=== PATIENT | male | born 1960 | race African-American/Black ===

== ENCOUNTER → 2016-08-08 | Outpatient (CLI) | payer MEDICARE, MEDICAID | LOC: RAD 07:21 | PROVIDERS: ATTEND Physician Assistant | DX: R94.5 Abnormal results of liver function studies (principal) | CPT/HCPCS: 76700; 93976 ==

== ENCOUNTER → 2017-06-19 | Outpatient (CLI) | payer MEDICAID, MEDICARE ==
--- NOTE | 2017-06-19 10:47 | RADIOLOGY REPORT (SQ) ---
EXAM DESCRIPTION: U/S ABDOMEN LIMITED W/O DOP COMPLETED DATE/TIME: 06/19/2017 9:34 am REASON FOR STUDY: R94.5 ABNORMAL RESULTS OF LIVER FUNCTION STUDIES R94.5 ABNORMAL RESULTS OF LIVER FUNCTION STUDIES COMPARISON: 2016. TECHNIQUE: Dynamic and static grayscale images acquired of the abdomen and recorded on PACS. Additio nal selected color Doppler and spectral images recorded. LIMITATIONS: None. FINDINGS: PANCREAS: No masses. No peripancreatic edema or fluid collections. LIVER: Echotexture is coarse with increased echogenicity consistent with fatty infiltration. 16.8 cm . LIVER VASCULATURE: Normal directional flow of the main portal vein and hepatic veins. GALLBLADDER: No stones. Normal wall thickness. No pericholecystic fluid. ULTRASOUND-DETECTED MALHOTRA'S SIGN: Negative. INTRAHEPATIC DUCTS AND COMMON DUCT: CBD and intrahepatic ducts normal caliber. No filling defects. INFERIOR VENA CAVA: Normal flow. AORTA: No aneurysm. RIGHT KIDNEY: Normal size. Normal echogenicity. No solid or suspicious masses. No hydronephrosis. No calcifications. PERITONEAL AND RIGHT PLEURAL SPACE: No ascites or effusions. OTHER: No other significant finding. IMPRESSION: FATTY INFILTRATION OF THE LIVER. OTHERWISE NORMAL RIGHT UPPER QUADRANT ULTRASOUND. TECHNICAL DOCUMENTATION: JOB ID: [id number] [employer]- All Rights Reserved Reading location - IP/workstation name: [email or web address]
== END ==
LOC: RAD 10:08
PROVIDERS: ATTEND Family Medicine
DX: R94.5 Abnormal results of liver function studies (principal); K76.0 Fatty (change of) liver, not elsewhere classified
CPT/HCPCS: 76705

== ENCOUNTER 2017-11-24 08:06 | Emergency (ER) | payer MEDICARE, MEDICAID ==
[2017-11-24] MEDS ORDERED: MORPHINE SULFATE 10 MG/ML INJ IM ONE (08:22)
[2017-11-24] MEDS ORDERED: SILVER SULFADIAZINE 1% CREAM 50 GM TP ONE (08:23)
[2017-11-24] MEDS ORDERED: ONDANSETRON 4 MG TAB.RAPDIS PO ONE (08:23)
--- NOTE | 2017-11-24 08:30 | ER Document Report ---
ED Burn/Smoke/Toxic Fumes - General Mode of Arrival: Ambulatory Information source: Patient TRAVEL OUTSIDE OF THE [place] IN LAST 30 DAYS: No - General Chief Complaint: Thermal Burn Stated Complaint: LEFT ARM INJURY Time Seen by Provider: 11/24/17 08:17 Notes: Patient is a 56 year old male with a history of alcoholic pancreatitis presents to the emergency department complaining of a burn to the left forearm. Patient states he was moving a hot grill around 1200 this morning when he got burned. He states he was consuming alcohol and stopped around the time he got burned. (SPENSER FRANKLIN) - Related Data Allergies/Adverse Reactions: quinine sulfate [From Qualaquin] Allergy (Verified 11/24/17 08:07) Delirium qualude Allergy (Uncoded 11/24/17 08:07) Past Medical History - General Information source: Patient - Social History Smoking Status: Current Every Day Smoker Cigarette use (# per day): No - states he only smokes black and mild cigars as of 11/24/2017 Frequency of alcohol use: Heavy Family History: Reviewed & Not Pertinent - Past Medical History Cardiac Medical History: Reports: Hx Hypertension GI Medical History: Reports: Hx Gastroesophageal Reflux Disease, Hx Pancreatitis Musculoskeletal Medical History: Reports Hx Arthritis - 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 Traumatic Medical History: Reports: Hx Traumatic Brain Injury Past Surgical History: Reports: Hx Orthopedic Surgery - left knee surgery, Hx Tonsillectomy - Immunizations Hx Diphtheria, Pertussis, Tetanus Vaccination: Yes - given today Hx Pneumococcal Vaccination: 06/17/13 Review of Systems - Review of Systems Constitutional: No symptoms reported EENT: No symptoms reported Cardiovascular: No symptoms reported Respiratory: No symptoms reported Gastrointestinal: No symptoms reported Genitourinary: No symptoms reported Male Genitourinary: No symptoms reported Musculoskeletal: See HPI Skin: No symptoms reported Hematologic/Lymphatic: No symptoms reported Neurological/Psychological: No symptoms reported -: Yes All other systems reviewed and negative Physical Exam - Notes Notes: GENERAL: Alert, appears uncomfortable, odor of ETOH. No acute distress. HEAD: Normocephalic, atraumatic. EYES: Pupils equal, round, and reactive to light. Extraocular movements intact. ENT: Oral mucosa moist, tongue midline. NECK: Full range of motion. Supple. Trachea midline. LUNGS: Clear to auscultation bilaterally, no wheezes, rales, or rhonchi. No respiratory distress. HEART: Regular rate and rhythm. No murmurs, gallops, or rubs. EXTREMITIES: Moves all 4 extremities spontaneously. NEUROLOGICAL: Alert and oriented x3. Normal speech. PSYCH: Normal affect, normal mood. SKIN: Warm, dry, normal turgor. Elliptical shaped burn approximately 21uro9bn on dorsal aspect of left forearm. Just distal to this on the dorsal aspect of proximal ulnar contains 1-2mm avilez. (SPENSER FRANKLIN) Discharge - Discharge Clinical Impression: Burn of forearm, left, second degree Qualifiers: Encounter type: initial encounter Qualified Code(s): T22.212A - Burn of second degree of left forearm, initial encounter Condition: Stable Disposition: HOME, SELF-CARE Additional Instructions: Avilez The seriousness of a burn is not always obvious at first. Delayed tissue damage and secondary infection may occur despite proper treatment. Proper care is very important. A burn that is third-degree may need skin grafting. Most avilez, however, are simply protected with dressings until healed. Keep the burn clean. If the dressing gets wet, remove it and blot the wound dry, then apply a fresh dressing. Dressings should be changed at least once daily. Soaks to remove crusting are usually started in about two days. Avilez in certain areas require stretching to prevent disabling tightness. Your doctor will advise you about this. For pain control, you may frequently apply a hand towel that has been dipped in water with ice cubes. Do not apply ice directly to the burned areas. If any signs of infection occur (swelling, redness, increasing tenderness, red streaks, tender lumps in the armpit or groin above the burn, or fever), contact the doctor immediately. Remove the dressing tomorrow. Clean the burn with soap and water. Reapply the burn cream and wrap dressings around the burn again after you cleaned tomorrow. Change the dressings and clean the burn and reapplied ointment once every day. Take Tylenol and ibuprofen for pain if needed. Follow-up with [facility] this week to check your avilez. RETURN TO THE EMERGENCY ROOM IF ANY NEW OR WORSENING SYMPTOMS. Referrals: [facility] [Provider Group] - Follow up in 3-5 days Svitlanaibe Attestation: 11/24/17 09:18 I personally performed the services described in the documentation, reviewed and edited the documentation which was dictated to the scribe in my presence, and it accurately records my words and actions. (IZZY PACHECO) Scribe Documentation - Scribe Written by Malu:: Malu Johnson, 11/24/2017 08:30 acting as scribe for :: Allegra
[2017-11-24 09:43] VITALS: BP 130/93
== END 2017-11-24 09:30 | disposition home or self-care (01) ==
LOC: ER 08:06
DX: T22.212A Burn of second degree of left forearm, initial encounter (principal); F10.10 Alcohol abuse, uncomplicated; F17.200 Nicotine dependence, unspecified, uncomplicated; X08.8XXA Exposure to other specified smoke, fire and flames, initial encounter; I10 Essential (primary) hypertension
CPT/HCPCS: 99283; 96372; A9270; J2270; J3490; S0119

== ENCOUNTER 2018-05-26 10:57 | Emergency (ER) | payer MEDICARE, MEDICAID ==
[2018-05-26 11:03] VITALS: BP 141/95
[2018-05-26] MEDS ORDERED: ACETAMINOPHEN 325 MG TABLET PO ONE (11:39)
[2018-05-26] MEDS ORDERED: IBUPROFEN 600 MG TABLET PO ONE (11:39)
--- NOTE | 2018-05-26 11:45 | ER Document Report ---
HPI - HPI Time Seen by Provider: 05/26/18 11:20 Pain Level: 3 Notes: Patient is a 57-year-old male no significant past medical history who presents emergency department complaining of right knee pain and right foot pain status post injury yesterday. Patient states that he is moving his washing machine when he twisted and heard a pop. Patient states that he has had pain in both places since then. He has not noticed any of obvious swelling or bruising otherwise. He is able to ambulate with the aid of a single-point cane. Pain does not radiate. Pain is worse with movement and weightbearing. Denies any headache, fever, head injury, neck pain, URI, sore throat, chest pain, palpitations, syncope, cough, shortness of breath, wheeze, dyspnea, abdominal pain, nausea/vomiting/diarrhea, urinary retention, dysuria, hematuria, loss of control of bowel or bladder, numbness/tingling, saddle anesthesia, muscle paralysis/weakness, or rash. - ROS Systems Reviewed and Negative: Yes All other systems reviewed and negative - CONSTITUTIONAL Constitutional: DENIES: Fever, Chills - EENT EENT: DENIES: Sore Throat, Ear Pain, Eye problems - NEURO Neurology: DENIES: Headache, Weakness, Vision blurred, Dizzinesss / Vertigo - CARDIOVASCULAR Cardiovascular: DENIES: Chest pain - RESPIRATORY Respiratory: DENIES: Trouble Breathing, Coughing - GASTROINTESTINAL Gastrointestinal: DENIES: Abdominal Pain, Black / Bloody Stools - URINARY Urinary: DENIES: Dysuria, Urgency, Frequency - MUSCULOSKELETAL Musculoskeletal: REPORTS: Extremity pain - rle Past Medical History - Social History Smoking Status: Current Every Day Smoker Chew tobacco use (# tins/day): No Frequency of alcohol use: Social Drug Abuse: None Family History: Reviewed & Not Pertinent Patient has suicidal ideation: No Patient has homicidal ideation: No - Past Medical History Cardiac Medical History: Reports: Hx Hypertension Renal/ Medical History: Denies: Hx Peritoneal Dialysis GI Medical History: Reports: Hx Gastroesophageal Reflux Disease, Hx Pancreatitis Musculoskeletal Medical History: Reports Hx Arthritis - 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 LUNGS: Breath sounds clear to auscultation bilaterally and equal. No wheezes rales or rhonchi. HEART: Regular rate and rhythm without murmurs, rubs, gallops. Musculoskeletal: Rt foot/ankle: FROM to passive/active dorsiflexion. Strength 5+/5. N/V intact distal. + tenderness to the Dorsal foot. No bony tenderness of the ankle/toes. Achilles intact. No obvious swelling, ecchymosis, effusion, or deformity. Rt knee: No obvious swelling, ecchymosis, effusion, or deformity. FROM to passive/active. Strength 5+/5. N/V intact distal. + medial knee tenderness to palp. Pt would not allow for adequate testing of ligaments/cartilage. Patellar grind negative. No calf tenderness. Extremities: No cyanosis, clubbing, or edema b/l. Peripheral pulses 2+. Capillary refill less than 3 seconds. Tiffanie neg b/l. NEUROLOGICAL: Normal speech, limping gait. Normal sensory, motor exams PSYCH: Normal mood, normal affect. SKIN: Warm, Dry, normal turgor, no rashes or lesions noted. - INFECTION CONTROL TRAVEL OUTSIDE OF THE [place] IN LAST 30 DAYS: No Course - Re-evaluation Re-evalutation: 05/26/18 12:13 Patient is an afebrile, well-hydrated, 57-year-old male who presents to the ED with rt knee/foot pain which I suspect to be a sprain versus strain. Vitals are acceptable without any significant tachycardia, tachypnea, or hypoxia. PE is otherwise unremarkable for any neurovascular compromise, obvious tendon/ligament rupture, obvious fracture/dislocation, septic joint. X-rays unremarkable for an y acute pathology. Knee immobilizer and crutches were provided today. Pt given tylenol/motrin. Patient is nontoxic-appearing. Patient is able to ambulate and weight-bear although he is limping. No other labs or imaging warranted at this time based on H&P. Conservative measures otherwise for symptoms. Recheck with your PCM in 3-5 days. Consider consult orthopedics. Return to the ED with any worsening/concerning symptoms otherwise as reviewed in discharge. Patient is in agreement. - Vital Signs Vital signs: Temp Pulse Resp BP Pulse Ox 98.2 F 89 16 141/95 H 93 05/26/18 11:02 05/26/18 11:02 05/26/18 11:02 05/26/18 11:02 05/26/18 11:02 Discharge - Discharge Clinical Impression: Right foot pain Right knee pain Qualifiers: Chronicity: acute Qualified Code(s): M25.561 - Pain in right knee Condition: Stable Disposition: HOME, SELF-CARE Additional Instructions: Rest, Ice, Compression, Elevation Use crutches/splint as directed Tylenol/ibuprofen as needed Light stretches daily Strength exercises as able Moist heat and massage may help F/u with your PCP in 3-5 days for a recheck Consider consult(s) with Orthopedics/physical therapy for ongoing/worsening symptoms Return to the ED with any worsening symptoms and/or development of fever, headache, chest pain, palpitations, syncope, shortness of breath, trouble breathing, abdominal pain, n/v/d, blood in stool/urine, loss of control of bowel/bladder, urinary retention, muscle weakness/paralysis, saddle anesthesia, numbness/tingling, or other worsening symptoms that are concerning to you. Prescriptions: Naproxen 500 mg PO BID #20 tablet Forms: Elevated Blood Pressure Referrals: GARY SANCHES MD [Primary Care Provider] - Follow up as needed [facility] [Provider Group] - Follow up as needed
--- NOTE | 2018-05-26 12:05 | RADIOLOGY REPORT (SQ) ---
EXAM DESCRIPTION: KNEE RIGHT 4 VIEWS COMPLETED DATE/TIME: 05/26/2018 11:57 am REASON FOR STUDY: pain s/p injury COMPARISON: None. NUMBER OF VIEWS: Four views. TECHNIQUE: AP, lateral, and both oblique radiographic images acquired of the right knee. LIMITATIONS: None. FINDINGS: MINERALIZATION: Normal. BONES: No acute fracture or dislocation. No worrisome bone lesions. JOINT: No effusion. SOFT TISSUES: No soft tissue swelling. No radio-opaque foreign body. OTHER: No other significant finding. IMPRESSION: 1. NEGATIVE STUDY OF THE RIGHT KNEE. TECHNICAL DOCUMENTATION: JOB ID: [id number] [employer]- All Rights Reserved Reading location - IP/workstation name: [email or web address]
--- NOTE | 2018-05-26 12:07 | RADIOLOGY REPORT (SQ) ---
EXAM DESCRIPTION: FOOT RIGHT COMPLETE COMPLETED DATE/TIME: 05/26/2018 11:57 am REASON FOR STUDY: pain s/p injury COMPARISON: None. NUMBER OF VIEWS: Three views. TECHNIQUE: AP, lateral and oblique radiographic images acquired of the right foot. LIMITATIONS: None. FINDINGS: MINERALIZATION: Normal. BONES: No acute fracture or dislocation. Calcaneal spurs. Accessory cuboid ossicle, normal anatomic variant. JOINTS: Slight hallux valgus deformity at the first metatarsophalangeal joint and associated bunion. SOFT TISSUES: No soft tissue swelling. No foreign body. OTHER: No other significant finding. IMPRESSION: 1. No acute osseous findings. 2. Hallux valgus deformity first metatarsophalangeal joint and associated bunion. 3. Calcaneal spurs. TECHNICAL DOCUMENTATION: JOB ID: [id number] [employer]- All Rights Reserved Reading location - IP/workstation name: [email or web address]
== END 2018-05-26 12:38 | disposition home or self-care (01) ==
LOC: ER 10:57
DX: M79.671 Pain in right foot (principal); M25.561 Pain in right knee; F17.200 Nicotine dependence, unspecified, uncomplicated; I10 Essential (primary) hypertension
CPT/HCPCS: 99283; 73630; 73564; A9270 ×2

== ENCOUNTER 2019-03-14 13:02 | Emergency (ER) | payer MEDICARE, MEDICAID ==
[2019-03-14] MEDS ORDERED: CYCLOBENZAPRINE HCL 10 MG TABLET PO ONE (13:24)
[2019-03-14] MEDS ORDERED: KETOROLAC TROMETHAMINE 60 MG/2 ML SDV IM ONE (13:24)
[2019-03-14] MEDS ORDERED: LIDOCAINE 5% (700 MG) TRANSDERMAL ADH..PATCH TP ONE (13:25)
--- NOTE | 2019-03-14 13:26 | ER Document Report ---
ED Medical Screen (RME) - General Chief Complaint: Back Pain Stated Complaint: BACK PAIN Time Seen by Provider: 03/14/19 13:21 Primary Care Provider: GARY SANCHES MD [Primary Care Provider] - Follow up as needed Mode of Arrival: Wheelchair Information source: Patient Notes: Patient is a 58-year-old male presenting to the emergency department chief complaint of severe low back pain. Patient reports sudden onset back pain yesterday. He denies any direct trauma but does state that he lifted some heavy objects yesterday. He denies any bowel or bladder incontinence. He is taken [id number] medications at home without relief. He has exquisite tenderness to his lumbar paraspinous area on the left side as well as midline tenderness. I have greeted and performed a rapid initial assessment of this patient. A comprehensive ED assessment and evaluation of the patient, analysis of test results and completion of the medical decision making process will be conducted by additional ED providers. I have specifically instructed the patient or family members with the patient to immediately return to any nursing staff should anything change in the patient's condition or with their chief complaint. This medical record was dictated with voice recognizing software. There may be grammatical, syntax errors that are unintended. TRAVEL OUTSIDE OF THE [place] 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 Traumatic Medical History: Reports: Hx Traumatic Brain Injury Past Surgical History: Reports: Hx Orthopedic Surgery - left knee surgery, Hx Tonsillectomy - Immunizations Hx Diphtheria, Pertussis, Tetanus Vaccination: Yes - given today Physical Exam - Vital signs Vitals: Temp Pulse Resp BP Pulse Ox 97.9 F 94 16 151/91 H 98 03/14/19 13:06 03/14/19 13:06 03/14/19 13:06 03/14/19 13:06 03/14/19 13:06 Course - Vital Signs Vital signs: Temp Pulse Resp BP Pulse Ox 97.9 F 94 16 151/91 H 98 03/14/19 13:06 03/14/19 13:06 03/14/19 13:06 03/14/19 13:06 03/14/19 13:06 Doctor's Discharge - Discharge Referrals: GARY SANCHES MD [Primary Care Provider] - Follow up as needed
--- NOTE | 2019-03-14 14:26 | RADIOLOGY REPORT (SQ) ---
EXAM DESCRIPTION: CT LUMBAR SPINE WITHOUT COMPLETED DATE/TIME: 03/14/2019 2:11 pm REASON FOR STUDY: severe low back pain COMPARISON: CT abdomen pelvis 06/15/2013 TECHNIQUE: Axial images acquired through the lumbar spine without intravenous contrast. Images revi ewed with lung, soft tissue and bone windows. Reconstructed coronal and sagittal MPR images reviewed . All images stored on PACS. All CT scanners at this facility use dose modulation, iterative reconstruction, and/or weight based d osing when appropriate to reduce radiation dose to as low as reasonably achievable (ALARA). [facility]: Dose Right [facility]: CareDose [facility]: Dose Right [facility]: Teradose 4D [facility]: Game Blisters RADIATION DOSE: 15.6 mGy. LIMITATIONS: None. FINDINGS: SEGMENTATION: Normal. No transitional anatomy. ALIGNMENT: Normal. VERTEBRAL BODIES: No fractures. No dislocation. No acute findings. DISCS: T12-L1, L1-2, L2-3 are unremarkable. At L3-4, mild diffuse posterior disc bulging and mild facet and ligament hypertrophy is present. Bor derline central canal narrowing. Mild bilateral inferior foraminal narrowing without exit nerve root impingement. At L4-5, mild diffuse posterior disc bulging and moderate bilateral facet and ligament hypertrophy is present. Bulky bony spurring off the inferior aspect of the right L4-5 facet joint. Borderline willa tral canal narrowing. Mild bilateral inferior foraminal narrowing without exiting L4 nerve root impi ngement. At L5-S1, no central or foraminal stenosis. Mild bilateral facet hypertrophy. PEDICLES, TRANSVERSE PROCESSES: No acute findings FACETS, POSTERIOR ELEMENTS: No acute findings HARDWARE: None in the spine. VISUALIZED RIBS: No fractures. SOFT TISSUES: No significant or acute finding in adjacent soft tissues. OTHER: No other significant finding. IMPRESSION: No acute fracture or malalignment. Degenerative changes as above TECHNICAL DOCUMENTATION: JOB ID: [id number] Quality ID # [id number]: Final reports with documentation of one or more dose reduction techniques (e.g., Au tomated exposure control, adjustment of the mA and/or kV according to patient size, use of iterative reconstruction technique) 2010 [employer]- All Rights Reserved Reading location - IP/workstation name: [email or web address]
--- NOTE | 2019-03-14 14:52 | ER Document Report ---
HPI - HPI Time Seen by Provider: 03/14/19 13:21 Pain Level: 5 Notes: Patient is an otherwise healthy 58-year-old male presenting with acute exacerbation of low back pain. Patient reports pain radiates over to the left side of his lumbar area. He states that yesterday he was lifting a heavy dresser when the pain began. He denies loss of control of any bowel or bladder. Denies any saddle anesthesia. He has not had fever. He is tried taking ibuprofen with minimal relief. - REPRODUCTIVE Reproductive: DENIES: : Past Medical History - General Information source: Patient - Social History Smoking Status: Current Every Day Smoker Chew tobacco use (# tins/day): No Frequency of alcohol use: Heavy Drug Abuse: None Family History: Reviewed & Not Pertinent Patient has suicidal ideation: No Patient has homicidal ideation: No - Past Medical History Cardiac Medical History: Reports: Hx Hypertension Renal/ Medical History: Denies: Hx Peritoneal Dialysis GI Medical History: Reports: Hx Gastroesophageal Reflux Disease, Hx Pancreatitis Musculoskeletal Medical History: Reports Hx Arthritis - 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 HEAD: Atraumatic, normocephalic. EYES: Pupils equal round extraocular movements intact, conjunctiva are normal. ENT: Nares patent NECK: Normal range of motion LUNGS: No respiratory distress Musculoskeletal: Normal range of motion, tenderness to palpation over lumbar paraspinous area, there is vertebral tenderness but no step-off or deformity. NEUROLOGICAL: Normal speech, normal gait. No focal neurological deficits. PSYCH: Normal mood, normal affect. SKIN: Warm, Dry, normal turgor, no rashes or lesions noted. - INFECTION CONTROL TRAVEL OUTSIDE OF THE [place] IN LAST 30 DAYS: No Course - Re-evaluation Re-evalutation: Lumbar Spine CT 03/14/19 13:25 IMPRESSION: No acute fracture or malalignment. Degenerative changes as above Patient ambulated into the emergency department without difficulty. There is some lumbar disc bulges on CT. He will be prescribed muscle relaxers. He does report significant improvement of his pain here in the emergency department aft er medications were given. He has no neurological deficits. Stable for discharge home. The patient's emergency department workup and current diagnosis were explained to the patient and or family. Follow-up instructions were provided. Medications if prescribed were discussed. Instructions for when to return to the emergency department including specific worrisome symptoms were discussed with t he patient and/or family. - Vital Signs Vital signs: Temp Pulse Resp BP Pulse Ox 97.9 F 94 16 151/91 H 98 03/14/19 13:06 03/14/19 13:06 03/14/19 13:06 03/14/19 13:06 03/14/19 13:06 Discharge - Discharge Clinical Impression: Bulging lumbar disc Back pain Qualifiers: Back pain location: low back pain Chronicity: acute Back pain laterality: unspecified Sciatica presence: unspecified whether sciatica present Qualified Code(s): M54.5 - Low back pain Condition: Stable Disposition: HOME, SELF-CARE Additional Instructions: You were seen in the emergency department with an acute episode of back pain. The CT shows that you have bulging disks in your back. Please take it easy over the next Couple of days, take ibuprofen 600 mg every 6 hours, use all the other pain medications and muscle relaxers as prescribed. Follow-up with your primary care provider for consideration of physical therapy. Return to the emergency department if you have any new or worsening symptoms such as have a bowel movement on yourself, lose control of your bladder, unable to urinate or any other concerning symptoms. Prescriptions: Cyclobenzaprine HCl [Flexeril 10 mg Tablet] 10 mg PO TIDP PRN #20 tab PRN Reason: Lidocaine [Lidoderm 5% (700 mg) Transdermal Patch] 1 patch TP DAILY #30 adh..patch Oxycodone HCl/Acetaminophen [Percocet 5-325 mg Tablet] 1 tab PO Q4H PRN #15 tablet PRN Reason: Referrals: GARY SANCHES MD [Primary Care Provider] - Follow up as needed
[2019-03-14 15:30] VITALS: BP 139/105
== END 2019-03-14 15:40 | disposition home or self-care (01) ==
LOC: ER 13:02
DX: M51.26 Other intervertebral disc displacement, lumbar region (principal); F17.200 Nicotine dependence, unspecified, uncomplicated; I10 Essential (primary) hypertension
CPT/HCPCS: 99283; 96372; 72131; A9270 ×2; J1885

== ENCOUNTER 2019-05-12 11:00 | Emergency (ER) | payer MEDICARE, MEDICAID ==
--- NOTE | 2019-05-12 11:58 | ER Document Report ---
ED Medical Screen (RME) - General Chief Complaint: Bloody Stools Stated Complaint: BLOOD IN STOOL Time Seen by Provider: 05/12/19 11:54 Primary Care Provider: GARY SANCHES MD [Primary Care Provider] - Follow up as needed Mode of Arrival: Wheelchair Information source: Patient Notes: 58-year-old male presented to ED for complaint of blood in his stool. He states he went to his doctor and he has ordered an endoscopy and a colonoscopy. He states they also told him to get some blood work done before these procedures so he is come to the emergency room today for rectal bleeding. He states he did not have the rectal bleeding when he went to his primary care. He asked that we could get his blood work and his liver ultrasound while he is here. Patient is alert oriented respirations regular nonlabored speaking in full sentences walks with even steady gait. He states the blood is in the bowel movement and in the commode and it is dark blood. I have greeted and performed a rapid initial assessment of this patient. A comprehensive ED assessment and evaluation of the patient, analysis of test results and completion of medical decision making process will be conducted by an additional ED providers. TRAVEL OUTSIDE OF THE [place] 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 Traumatic Medical History: Reports: Hx Traumatic Brain Injury Past Surgical History: Reports: Hx Orthopedic Surgery - left knee surgery, Hx Tonsillectomy - Immunizations Hx Diphtheria, Pertussis, Tetanus Vaccination: Yes - given today Physical Exam - Vital signs Vitals: Temp Pulse Resp BP Pulse Ox 98.2 F 69 16 132/90 H 100 05/12/19 11:21 05/12/19 11:21 05/12/19 11:21 05/12/19 11:21 05/12/19 11:21 Course - Vital Signs Vital signs: Temp Pulse Resp BP Pulse Ox 98.2 F 69 16 132/90 H 100 05/12/19 11:21 05/12/19 11:21 05/12/19 11:21 05/12/19 11:21 05/12/19 11:21 Doctor's Discharge - Discharge Referrals: GARY SANCHES MD [Primary Care Provider] - Follow up as needed
[2019-05-12 12:56] LABS: APPEARANCE,URINE CLEAR; BILIRUBIN,URINE NEGATIVE (NEGATIVE); COLOR,URINE YELLOW; GLUCOSE, URINE NEGATIVE (NEGATIVE); KETONES,URINE NEGATIVE (NEGATIVE); PROTEIN,URINE NEGATIVE (NEGATIVE); UROBILINOGEN,URINE NEGATIVE mg/dL (<2.0)
[2019-05-12 13:16] LABS: ABSOLUTE EOSINOPHILS # (AUTO) 0.1 10^3/uL (0.0-0.6); ABSOLUTE LYMPHOCYTES (AUTO) 1.6 10^3/uL (0.5-4.7); ABSOLUTE MONOCYTES (AUTO) 0.8 10^3/uL (0.1-1.4); ABSOLUTE NEUT (AUTO) 2.5 10^3/uL (1.7-8.2); BASOPHILS % (AUTO) 0.7 % (0-2); EOSINOPHILS % (AUTO) 1.5 % (0-6); HEMATOCRIT 39.8 % (37.9-51.0); HEMOGLOBIN 13.5 g/dL (13.5-17.0); LYMPHOCYTES % (AUTO) 31.2 % (13-45); MEAN CORPUSCULAR HEMOGLOBIN 31.8 pg (27.0-33.4); MEAN CORPUSCULAR HGB CONC 33.8 g/dL (32.0-36.0); MEAN CORPUSCULAR VOLUME 94 fl (80-97); MONOCYTES % (AUTO) 16.8 % (3-13); PLATELET COUNT 267 10^3/uL (150-450); RED BLOOD COUNT 4.23 10^6/uL (4.35-5.55); SEGMENTED NEUTROPHILS % (AUTO) 49.8 % (42-78); TOTAL CELLS COUNTED % (AUTO) 100 %
[2019-05-12 13:36] LABS: ALBUMIN 4.2 g/dL (3.5-5.0); ALKALINE PHOSPHATASE 89 U/L (38-126); ANION GAP 6 (5-19); ASPARTATE AMINO TRANSFERASE 59 U/L (17-59); BILIRUBIN,TOTAL 0.6 mg/dL (0.2-1.3); BLOOD UREA NITROGEN 11 mg/dL (7-20); CALCIUM 10.4 mg/dL (8.4-10.2); CARBON DIOXIDE 31 mmol/L (22-30); CHLORIDE 100 mmol/L (98-107); GLUCOSE 92 mg/dL (75-110); POTASSIUM 4.4 mmol/L (3.6-5.0); TOTAL PROTEIN 7.9 g/dL (6.3-8.2)
--- NOTE | 2019-05-12 13:45 | ER Document Report ---
ED General - General Chief Complaint: Rectal Bleeding Stated Complaint: BLOOD IN STOOL Time Seen by Provider: 05/12/19 11:54 Primary Care Provider: GARY SANCHES MD [Primary Care Provider] - Follow up as needed Mode of Arrival: Wheelchair Cannot obtain history due to: Uncooperative Notes: 58-year-old male presents with rectal bleeding x3 this morning. Painless. B lood around the stool red-colored. Has had abdominal soreness in his lower abdomen for about a month and a half and is scheduled for colonoscopy on May 19 as long with endoscopy. No weakness or near syncope. No upper abdominal pain jaundice icterus or vomiting. TRAVEL OUTSIDE OF THE [place] IN LAST 30 DAYS: No - Related Data Allergies/Adverse Reactions: quinine sulfate [From Qualaquin] Allergy (Verified 05/12/19 11:51) Delirium qualude Allergy (Uncoded 05/12/19 11:51) Past Medical History - General Information source: Patient - Social History Smoking Status: Current Every Day Smoker Family History: Reviewed & Not Pertinent Patient has suicidal ideation: No Patient has homicidal ideation: No - Past Medical History Cardiac Medical History: Reports: Hx Hypertension Renal/ Medical History: Denies: Hx Peritoneal Dialysis GI Medical History: Reports: Hx Gastroesophageal Reflux Disease, Hx Pancreatitis Musculoskeletal Medical History: Reports Hx Arthritis - 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 Traumatic Medical History: Reports: Hx Traumatic Brain Injury Past Surgical History: Reports: Hx Orthopedic Surgery - left knee surgery, Hx Tonsillectomy - Immunizations Hx Diphtheria, Pertussis, Tetanus Vaccination: Yes - given today Hx Pneumococcal Vaccination: 06/17/13 Review of Systems - Review of Systems Notes: REVIEW OF SYSTEMS GEN: Denies fever, chills, weight loss ENT: Denies sore throat, nasal discharge, ear pain EYES: Denies blurry vision, eye pain, discharge CV: Denies chest pain, palpitations, edema RESP: Denies cough, shortness of breath, wheezing GI: See HPI MSK: Denies joint pain/swelling, edema, SKIN: Denies rash, skin lesions LYMPH: Denies swollen glands/lymph nodes NEURO: Denies headache, focal weakness or numbness, dizziness PSYCH: Denies depression, suicidal or homicidal ideation PHYSICAL EXAMINATION General: No acute distress, well-nourished Head: Atraumatic, normocephalic ENT: Mouth normal, oropharynx moist, no exudates or tonsillar enlargement Eyes: Conjunctiva normal, pupils equal, lids normal Neck: No JVD, supple, no guarding CVS: Normal rate, regular rhythm, no murmurs Resp: No resp distress, equal and normal breath sounds bilaterally GI: Nondistended, soft, no tenderness to palpation, no rebound or guarding. Rectal: Brown stool no blood Ext: No deformities, no edema, normal range of motion in upper and lower ext Back: No CVA or midline TTP Skin: No rash, warm Lymphatic: No lymphadeopathy noted Neuro: Awake, alert. Face symmetric. GCS 15. Physical Exam - Vital signs Vitals: Temp Pulse Resp BP Pulse Ox 98.2 F 69 16 132/90 H 100 05/12/19 11:21 05/12/19 11:21 05/12/19 11:21 05/12/19 11:21 05/12/19 11:21 Course - Re-evaluation Re-evalutation: 05/12/19 13:44 Rectal bleeding mild normal vital signs no blood in the vault and normal labs Already scheduled for colonoscopy. Triage ordered an outpatient scan of his liver but I think this is not necessary today and can be done as an outpatient. No other acute findingsstable for discharge and already has follow-up. I have discussed with the patient there likely diagnosis, aftercare plan, follow-up plans and my usual and customary return precautions. They verbalized understanding of this. - Vital Signs Vital signs: Temp Pulse Resp BP Pulse Ox 98.2 F 69 16 132/90 H 100 05/12/19 11:21 05/12/19 11:21 05/12/19 11:21 05/12/19 11:21 05/12/19 11:21 - Laboratory Result Diagrams: 05/12/19 12:58 05/12/19 12:58 Laboratory results interpreted by me: 05/12/19 05/12/19 05/12/19 12:35 12:58 12:58 RBC 4.23 L [place] % (Auto) 16.8 H Sodium 136.8 L Carbon Dioxide 31 H Calcium 10.4 H Leukocyte Esterase Rfl TRACE H Discharge - Discharge Clinical Impression: Rectal bleeding Condition: Good Disposition: HOME, SELF-CARE Instructions: Rectal Bleeding, Unclear Cause ([facility]) Additional Instructions: Please follow-up with your GI specialist next week as scheduled Referrals: GARY SANCHES MD [Primary Care Provider] - Follow up as needed
[2019-05-12 14:02] VITALS: BP 175/93
== END 2019-05-12 14:00 | disposition home or self-care (01) ==
LOC: ER 11:00
DX: K62.5 Hemorrhage of anus and rectum (principal); R19.5 Other fecal abnormalities; F17.200 Nicotine dependence, unspecified, uncomplicated; Z88.8 Allergy status to other drugs, medicaments and biological substances; I10 Essential (primary) hypertension
CPT/HCPCS: 36415; 80053; 81001; 83690; 85025; 99283

== ENCOUNTER → 2019-09-23 | Outpatient (CLI) | payer MEDICARE, MEDICAID ==
[2019-09-23 12:04] LABS: ABSOLUTE EOSINOPHILS # (AUTO) 0.1 10^3/uL (0.0-0.6); ABSOLUTE LYMPHOCYTES (AUTO) 1.5 10^3/uL (0.5-4.7); ABSOLUTE MONOCYTES (AUTO) 0.7 10^3/uL (0.1-1.4); ABSOLUTE NEUT (AUTO) 2.6 10^3/uL (1.7-8.2); BASOPHILS % (AUTO) 0.3 % (0-2); EOSINOPHILS % (AUTO) 1.3 % (0-6); HEMATOCRIT 40.8 % (37.9-51.0); HEMOGLOBIN 13.6 g/dL (13.5-17.0); LYMPHOCYTES % (AUTO) 30.9 % (13-45); MEAN CORPUSCULAR HGB CONC 33.4 g/dL (32.0-36.0); MEAN CORPUSCULAR VOLUME 96 fl (80-97); MONOCYTES % (AUTO) 13.8 % (3-13); PLATELET COUNT 162 10^3/uL (150-450); RED BLOOD COUNT 4.25 10^6/uL (4.35-5.55); RED CELL DISTRIBUTION WIDTH 12.6 % (11.5-14.0); SEGMENTED NEUTROPHILS % (AUTO) 53.7 % (42-78); TOTAL CELLS COUNTED % (AUTO) 100 %; WHITE BLOOD COUNT 4.8 10^3/uL (4.0-10.5)
[2019-09-23 12:05] LABS: ALBUMIN 4.3 g/dL (3.5-5.0); ALKALINE PHOSPHATASE 101 U/L (38-126); ANION GAP 7 (5-19); ASPARTATE AMINO TRANSFERASE 81 U/L (17-59); BILIRUBIN,DIRECT 0.1 mg/dL (0.0-0.4); BILIRUBIN,TOTAL 0.7 mg/dL (0.2-1.3); BLOOD UREA NITROGEN 16 mg/dL (7-20); CALCIUM 10.2 mg/dL (8.4-10.2); CARBON DIOXIDE 26 mmol/L (22-30); CHLORIDE 103 mmol/L (98-107); GLUCOSE 100 mg/dL (75-110); POTASSIUM 4.2 mmol/L (3.6-5.0); TOTAL PROTEIN 8.2 g/dL (6.3-8.2)
--- NOTE | 2019-09-23 12:14 | RADIOLOGY REPORT (SQ) ---
EXAM DESCRIPTION: CT HEAD WITHOUT IMAGES COMPLETED DATE/TIME: 09/23/2019 11:56 am REASON FOR STUDY: R42 DIZZINESS R42 DIZZINESS AND GIDDINESS COMPARISON: 07/16/2008 TECHNIQUE: Axial images acquired through the brain without intravenous contrast. Images reviewed wi th bone, brain and subdural windows. Additional sagittal and coronal reconstructions were generated. Images stored on PACS. All CT scanners at this facility use dose modulation, iterative reconstruction, and/or weight based d osing when appropriate to reduce radiation dose to as low as reasonably achievable (ALARA). [facility]: Dose Right [facility]: CareDose [facility]: Dose Right [facility]: Teradose 4D [facility]: Smart PenBlade RADIATION DOSE: CT Rad equipment meets quality standard of care and radiation dose reduction techniq ues were employed. CTDIvol: 53.2 mGy. DLP: 1044 mGy-cm. mGy. LIMITATIONS: None. FINDINGS: VENTRICLES: Normal size and contour. CEREBRUM: No masses. No hemorrhage. No midline shift. No evidence for acute infarction. Normal gra y/white matter differentiation. No areas of low density in the white matter. CEREBELLUM: No masses. No hemorrhage. No alteration of density. No evidence for acute infarction. EXTRAAXIAL SPACES: No fluid collections. No masses. ORBITS AND GLOBE: No intra- or extraconal masses. Normal contour of globe without masses. CALVARIUM: Craniotomy changes on the left. PARANASAL SINUSES: No fluid or mucosal thickening. SOFT TISSUES: No mass or hematoma. OTHER: No other significant finding. IMPRESSION: NO ACUTE INTRACRANIAL IMAGING FINDINGS. EVIDENCE OF ACUTE STROKE: NO. COMMENT: Quality ID # [id number]: Final reports with documentation of one or more dose reduction techniques (e.g., Automated exposure control, adjustment of the mA and/or kV according to patient size, use of iterative reconstruction technique) TECHNICAL DOCUMENTATION: JOB ID: [id number] 2010 [employer]- All Rights Reserved Reading location - IP/workstation name: [email or web address]
== END ==
LOC: RAD 11:10
PROVIDERS: ATTEND Family Medicine
DX: R42 Dizziness and giddiness (principal)
CPT/HCPCS: 36415; 70450; 80053; 85025

== ENCOUNTER 2019-11-16 11:35 | Emergency (ER) | payer MEDICARE, MEDICAID ==
[2019-11-16] MEDS ORDERED: OXYCODONE-ACETAMINOPHEN 5-325 MG TABLET PO ONE (12:19)
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
--- NOTE | 2019-11-16 12:51 | RADIOLOGY REPORT (SQ) ---
EXAM DESCRIPTION: RIBS LEFT W/PA CHEST IMAGES COMPLETED DATE/TIME: 11/16/2019 12:42 pm REASON FOR STUDY: fall COMPARISON: Chest x-ray dated 11/04/2013 TECHNIQUE: Frontal view of the chest and additional views of the left ribs acquired. NUMBER OF VIEWS: Four view. LIMITATIONS: None. FINDINGS: FRONTAL CXR: No pneumothorax. No pleural effusion. No atelectasis or infiltrates. RIBS: Mildly displaced left anterolateral 8th rib fracture. Probable posterolateral rib fracture of the 10th rib. OTHER: No other significant finding. IMPRESSION: Mildly displaced fracture of the 8th anterolateral rib. Suspect nondisplaced posterolat eral 10th rib fracture. COMMENT: SITE OF TRAUMA/COMPLAINT MARKED/STAMP COMPLETED: NO. TECHNICAL DOCUMENTATION: JOB ID: [id number] 2010 [employer]- All Rights Reserved Reading location - IP/workstation name: [email or web address]
[2019-11-16] MEDS ORDERED: METHOCARBAMOL 750 MG TABLET PO ONE (14:07)
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
[2019-11-16 14:24] VITALS: BP 181/94
== END 2019-11-16 14:32 | disposition home or self-care (01) ==
LOC: ER 11:35
DX: S22.42XA Multiple fractures of ribs, left side, initial encounter for closed fracture (principal); V18.9XXA Unspecified pedal cyclist injured in noncollision transport accident in traffic accident, initial encounter; Y93.55 Activity, bike riding; F17.210 Nicotine dependence, cigarettes, uncomplicated; I10 Essential (primary) hypertension; M17.11 Unilateral primary osteoarthritis, right knee; M47.819 Spondylosis without myelopathy or radiculopathy, site unspecified; Z79.1 Long term (current) use of non-steroidal anti-inflammatories (NSAID); Z79.899 Other long term (current) drug therapy; Z88.8 Allergy status to other drugs, medicaments and biological substances; R06.02 Shortness of breath
CPT/HCPCS: 99283; 71101; A9270 ×2; J3490